=== PATIENT | female | born 1940 | race Caucasian/White ===

== ENCOUNTER 2023-04-21 10:44 | Inpatient (IN) | payer OTHER ==
[~2023-04-21] VITALS: Ht 160 cm; Wt 73.5 kg
[2023-04-21 10:53] VITALS: BP 153/78; PULSE 58; RESP 20; TEMP 98.1; O2SAT 100
[2023-04-21] MEDS ORDERED: LOSA100T52 PO (11:34)
[2023-04-21] MEDS ORDERED: POTA8CAP4 PO (11:34)
[2023-04-21] MEDS ORDERED: FURO40TA9 PO (11:34)
[2023-04-21] MEDS ORDERED: FERR-149 PO (11:34)
[2023-04-21 11:52] LABS: APPEARANCE,URINE CLEAR (CLEAR); BILIRUBIN,URINE NEGATIVE (NEGATIVE); BLOOD, URINE NEGATIVE (NEGATIVE); COLOR,URINE YELLOW (YELLOW); LEUKOCYTE ESTERASE ,URINE NEGATIVE (NEGATIVE); NITRITE, URINE POSITIVE (NEGATIVE); PROTEIN,URINE NEGATIVE (NEGATIVE); UGLUCOSE NEGATIVE (NEGATIVE); UROBILINOGEN,URINE 0.2 EU/dL (0.2 - 1)
[2023-04-21] MEDS ORDERED: FUROSEMIDE 40 MG/4 ML VIAL IVP SCH (12:00)
[2023-04-21 12:09] LABS: RBC,URINE 0-5 /HPF (0-5); WBC,URINE 0-5 /HPF (0-5)
[2023-04-21 12:10] LABS: BACTERIA,URINE 0-2 /HPF (None Seen); SQUAMOUS EPITHELIAL CELL,UR 0-3 (FEW) /LPF (0-3 (FEW))
[2023-04-21 12:25] LABS: BASOPHILS # (AUTO) 0.1 K/uL (0.00-0.22); EOSINOPHILS # (AUTO) 0.3 K/uL (0-0.4); EOSINOPHILS % (AUTO) 5.5 % (0.0-4.0); HEMATOCRIT 34.4 % (36-48); HEMOGLOBIN 11.7 g/dL (12.0-16.0); LYMPHOCYTES # (AUTO) 1.5 K/uL (2.5-16.5); MEAN CORPUSCULAR HEMOGLOBIN 32 pg (27-31); MEAN CORPUSCULAR HGB CONC 34 g/dL (33-37); MEAN CORPUSCULAR VOLUME 95.3 fL (80-94); MONOCYTES # (AUTO) 0.4 K/uL (0.8-1.0); MONOCYTES % (AUTO) 8.1 % (1.7-9.3); NEUTROPHILS # (AUTO) 2.8 K/uL (1.8-7.7); NEUTROPHILS % (AUTO) 55.4 % (42.2-75.2); PLATELET COUNT (AUTO) 181 K/uL (140-450); RED BLOOD CELL COUNT(AUTO) 3.61 MIL/uL (4.20-5.40); RED CELL DISTRIBUTION WIDTH 12.7 % (11.6-13.7); WHITE BLOOD COUNT (AUTO) 5.1 K/uL (4.8-10.8)
[2023-04-21 13:06] LABS: ALANINE AMINOTRANSFERASE 24 U/L (12-78); ALBUMIN 3.6 g/dL (3.4-5.0); ALKALINE PHOSPHATASE 70 U/L (50-136); ANION GAP 11.4 (8-16); ASPARTATE AMINOTRANSFERASE 26 U/L (15-37); CALCIUM 8.8 mg/dL (8.5-10.1); CARBON DIOXIDE 25.5 mmol/L (21-32); CHLORIDE 98 mmol/L (98-107); CREATININE 0.8 mg/dL (0.6-1.3); GLUCOSE 84 mg/dL (74-106); POTASSIUM 3.9 mmol/L (3.5-5.1); SODIUM SERUM 131 mmol/L (136-145); TOTAL BILIRUBIN 0.4 mg/dL (0.0-1.0); TOTAL PROTEIN, SERUM 7.8 g/dL (6.4-8.2); UREA NITROGEN, BLOOD 14 mg/dL (7-18)
[2023-04-21] MEDS ORDERED: ALBUTEROL 0.083% 2.5 MG/3 ML NEBU INH PRN (15:30)
[2023-04-21] MEDS ORDERED: ONDANSETRON 4 MG/2 ML VIAL IVP PRN (15:30)
[2023-04-21 16:40] VITALS: BP 143/66; PULSE 57; PULSE 67; RESP 18; TEMP 98; O2SAT 99
[2023-04-21] MEDS ORDERED: ACETAMINOPHEN 650 MG SUPP RC PRN (17:00)
[2023-04-21 20:00] VITALS: BP 140/63; PULSE 86; PULSE 89; RESP 18; TEMP 98.4; O2SAT 100
[2023-04-21 20:03] VITALS: PULSE 56
[2023-04-21 21:05] VITALS: O2SAT 100
[2023-04-22] VITALS: BP 141/51; PULSE 54; PULSE 62; RESP 18; TEMP 99.2; O2SAT 100
[2023-04-22 04:00] VITALS: BP 112/62; PULSE 60; RESP 18; TEMP 97.5; O2SAT 96
[2023-04-22 04:14] VITALS: PULSE 56
[2023-04-22 06:46] LABS: BASOPHILS % (AUTO) 1.1 % (0.0-2.0); EOSINOPHILS # (AUTO) 0.3 K/uL (0-0.4); EOSINOPHILS % (AUTO) 6.8 % (0.0-4.0); HEMATOCRIT 34.2 % (36-48); HEMOGLOBIN 11.7 g/dL (12.0-16.0); LYMPHOCYTES # (AUTO) 1.5 K/uL (2.5-16.5); LYMPHOCYTES % (AUTO) 32.9 % (20.5-51.1); MEAN CORPUSCULAR HEMOGLOBIN 33 pg (27-31); MEAN CORPUSCULAR HGB CONC 34 g/dL (33-37); MONOCYTES # (AUTO) 0.5 K/uL (0.8-1.0); NEUTROPHILS # (AUTO) 2.2 K/uL (1.8-7.7); NEUTROPHILS % (AUTO) 48.2 % (42.2-75.2); PLATELET COUNT (AUTO) 193 K/uL (140-450); RED BLOOD CELL COUNT(AUTO) 3.59 MIL/uL (4.20-5.40); RED CELL DISTRIBUTION WIDTH 12.8 % (11.6-13.7); WHITE BLOOD COUNT (AUTO) 4.5 K/uL (4.8-10.8)
[2023-04-22 06:49] LABS: CALCIUM 9.1 mg/dL (8.5-10.1); CHLORIDE 102 mmol/L (98-107); CREATININE 0.8 mg/dL (0.6-1.3); GLUCOSE 82 mg/dL (74-106); SODIUM SERUM 137 mmol/L (136-145); UREA NITROGEN, BLOOD 16 mg/dL (7-18)
[2023-04-22 07:14] LABS: CHOL/HDL RATIO 2.5 (1-4.5); THYROID STIMULATING HORMONE 2.25 uIU/mL (0.34-3.74)
[2023-04-22 07:35] VITALS: O2SAT 97
[2023-04-22 08:00] VITALS: BP 123/53; PULSE 54; PULSE 59; RESP 18; TEMP 97.4; O2SAT 99
[2023-04-22] MEDS ORDERED: ATOR20TA PO (08:05)
[2023-04-22] MEDS ORDERED: ASPI-1129 PO (08:05)
[2023-04-22] MEDS ORDERED: DOCUSATE SODIUM 100 MG GELCAP PO SCH (09:00)
[2023-04-22] MEDS ORDERED: LOSARTAN 50 MG TAB PO SCH (09:00)
[2023-04-22] MEDS ORDERED: ECOTRIN 81 MG TABEC PO SCH (09:00)
[2023-04-22 10:35] VITALS: BP 113/53; PULSE 59; RESP 18; TEMP 97.4
[2023-04-22] MEDS ORDERED: ATORVASTATIN 20 MG TAB PO SCH (21:00)
== END 2023-04-22 11:50 | disposition home or self-care (01) | DRG 206 ==
LOC: MED 10:44 → MTU 15:32
PROVIDERS: ADMIT Internal Medicine; ATTEND Internal Medicine
DX: M94.0 Chondrocostal junction syndrome [Tietze] (principal); K21.9 Gastro-esophageal reflux disease without esophagitis; I11.0 Hypertensive heart disease with heart failure; I50.9 Heart failure, unspecified; I45.10 Unspecified right bundle-branch block; M25.512 Pain in left shoulder
CPT/HCPCS: 36415; 71045; 73030; 80048; 80053; 81001; 83036; 83880; 84443; 84484; 85025; 87081; 93005; 93970; 96374; 99285; J1644; J1940; Q0092

== ENCOUNTER 2023-07-22 14:20 | Emergency (ER) | payer MEDICARE ==
[~2023-07-22] VITALS: Ht 162.6 cm; Wt 72.6 kg
[~2023-07-22 14:20] MED LIST: ASPI-1129 PO; ATOR20TA PO; FERR-149 PO; FURO40TA9 PO; LOSA100T52 PO; POTA8CAP4 PO
[2023-07-22 14:33] VITALS: BP 116/56; PULSE 60; RESP 17; TEMP 97.4; O2SAT 100
[2023-07-22 15:12] LABS: APPEARANCE,URINE CLEAR (CLEAR); BILIRUBIN,URINE NEGATIVE (NEGATIVE); BLOOD, URINE NEGATIVE (NEGATIVE); COLOR,URINE YELLOW (YELLOW); LEUKOCYTE ESTERASE ,URINE NEGATIVE (NEGATIVE); NITRITE, URINE NEGATIVE (NEGATIVE); PROTEIN,URINE NEGATIVE (NEGATIVE); UGLUCOSE NEGATIVE (NEGATIVE); UROBILINOGEN,URINE 0.2 EU/dL (0.2 - 1)
[2023-07-22 15:26] LABS: BASOPHILS # (AUTO) 0.1 K/uL (0.00-0.22); BASOPHILS % (AUTO) 1.1 % (0.0-2.0); EOSINOPHILS # (AUTO) 0.5 K/uL (0-0.4); EOSINOPHILS % (AUTO) 7.2 % (0.0-4.0); HEMATOCRIT 30.5 % (36-48); HEMOGLOBIN 10.8 g/dL (12.0-16.0); LYMPHOCYTES # (AUTO) 1.4 K/uL (2.5-16.5); LYMPHOCYTES % (AUTO) 21.8 % (20.5-51.1); MEAN CORPUSCULAR HEMOGLOBIN 32 pg (27-31); MEAN CORPUSCULAR HGB CONC 35 g/dL (33-37); MEAN CORPUSCULAR VOLUME 91.1 fL (80-94); MONOCYTES # (AUTO) 0.5 K/uL (0.8-1.0); MONOCYTES % (AUTO) 7.7 % (1.7-9.3); NEUTROPHILS # (AUTO) 3.9 K/uL (1.8-7.7); NEUTROPHILS % (AUTO) 62.2 % (42.2-75.2); PLATELET COUNT (AUTO) 193 K/uL (140-450); RED BLOOD CELL COUNT(AUTO) 3.35 MIL/uL (4.20-5.40); RED CELL DISTRIBUTION WIDTH 13.8 % (11.6-13.7); WHITE BLOOD COUNT (AUTO) 6.3 K/uL (4.8-10.8)
[2023-07-22 15:38] VITALS: O2SAT 95
[2023-07-22 15:47] LABS: ANION GAP 12.6 (8-16); CHLORIDE 98 mmol/L (98-107); CREATININE 1.1 mg/dL (0.6-1.3); GLUCOSE 102 mg/dL (74-106); POTASSIUM 3.6 mmol/L (3.5-5.1); SODIUM SERUM 132 mmol/L (136-145); UREA NITROGEN, BLOOD 25 mg/dL (7-18)
[2023-07-22 15:50] LABS: ALBUMIN 3.3 g/dL (3.4-5.0); BILIRUBIN,DIRECT 0.1 mg/dL (0.0-0.3); TOTAL BILIRUBIN 0.2 mg/dL (0.0-1.0); TOTAL PROTEIN, SERUM 8.1 g/dL (6.4-8.2)
[2023-07-22 17:33] VITALS: BP 136/72; PULSE 84; RESP 20; TEMP 97.4; O2SAT 98
== END 2023-07-22 17:34 | disposition home or self-care (01) ==
LOC: MED 14:20
DX: R10.9 Unspecified abdominal pain (principal); R91.1 Solitary pulmonary nodule; I10 Essential (primary) hypertension; Z90.49 Acquired absence of other specified parts of digestive tract; Z79.899 Other long term (current) drug therapy; Z79.82 Long term (current) use of aspirin
CPT/HCPCS: 36415; 71045; 80048; 80076; 81003; 82150; 83690; 84484; 84703; 85025; 93005; 99285